=== PATIENT | female | born 1985 | race Caucasian/White ===

== ENCOUNTER → 2021-08-04 | Outpatient (CLI) | payer BC ==
[~2021-08-04] MED LIST: BCP; HYDACE5 PO; LEVFLO500 PO; MULVITMINE; OXYC5; PROM25 PO; Robaxin500 MG PO
[2021-08-06 15:12] LABS: HPV 16 Negative (Negative); HPV 18 Negative (Negative); HPV OTHER HR TYPES Negative (Negative)
== END | disposition home or self-care (01) ==
LOC: LAB 18:34 → LAB SHORT 18:34
PROVIDERS: Obstetrics & Gynecology
DX: Z12.4 Encounter for screening for malignant neoplasm of cervix (principal); N89.8 Other specified noninflammatory disorders of vagina
CPT/HCPCS: 87070; 87205; 87624; G0123